=== PATIENT | female | born 1975 | race Caucasian/White ===

== ENCOUNTER 2018-02-14 16:51 | Emergency (ER) | payer OTHER | END 2018-02-14 19:41 | disposition other institution (70) | LOC: ED 16:51 | DX: Z02.89 Encounter for other administrative examinations (principal) ==

== ENCOUNTER 2018-02-14 16:51 | Emergency (ER) | payer MEDICAID ==
[~2018-02-14] VITALS: Ht 170.2 cm; Wt 77.1 kg
[2018-02-14 16:56] VITALS: Ht 170.2 cm; Wt 77.1 kg
[2018-02-14 19:40] VITALS: BP 132/89
== END 2018-02-14 19:41 | disposition other institution (70) ==
LOC: ED 16:51
DX: J44.1 Chronic obstructive pulmonary disease with (acute) exacerbation (principal); F43.9 Reaction to severe stress, unspecified; F17.210 Nicotine dependence, cigarettes, uncomplicated; Z71.6 Tobacco abuse counseling
CPT/HCPCS: 99406; J7512; J7620; Q0092